=== PATIENT | male | born 1975 | race Caucasian/White ===

== ENCOUNTER 2018-09-02 16:04 | Emergency (ER) | payer SELFPAY | END 2018-09-02 16:48 | disposition left against medical advice (07) | LOC: ERS 16:04 | DX: Z53.21 Procedure and treatment not carried out due to patient leaving prior to being seen by health care provider (principal) ==

== ENCOUNTER 2019-03-25 09:08 | Emergency (ER) | payer SELFPAY ==
[2019-03-25] MEDS ORDERED: Aspirin Chewable 81 MG TAB ONE (09:39)
[2019-03-25] MEDS ORDERED: Ketorolac Tromethamine 30 MG/ML VIAL ONE (09:39)
--- NOTE | 2019-03-25 09:56 | RAD ---
XR Chest 1 View Portable HISTORY: Left-sided chest pain COMPARISON: 02/01/2015 exam FINDINGS: Heart size and mediastinum are within normal limits. The lungs are clear of infiltrates. IMPRESSION: No active intrathoracic disease.
[2019-03-25 10:06] LABS: #Eosinphils 0.1 thou/uL (0.0-0.7); #Lymphocytes 1.6 thou/uL (1.20-3.40); #Monocytes 0.5 thou/uL (0.11-0.59); #Neutrophils 7.6 thou/uL (1.40-6.50); %Eosinophils 0.8 % (0.0-10.0); %Lymphocytes 16.6 % (21.0-51.0); %Monocytes 4.7 % (0.0-10.0); %Neutrophils 77.8 % (42.0-75.0); Mean Corpuscular HGB CONC 32.9 g/dL (32.0-36.0); Mean Corpuscular Hemoglobin 30.8 pg (27.0-31.0); Mean Corpuscular Volume 93.4 fL (78.0-98.0); Mean Platelet Volume 7.3 fL (7.4-10.4); Platelet Count 294 thou/uL (130-400); RBC Distribution Width 13.7 % (11.5-14.5); Red Blood Cell (RBC) Count 5.21 mill/uL (4.70-6.10); White Blood Cell (WBC) Count 9.7 thou/uL (4.8-10.8)
[2019-03-25 10:23] LABS: ALT (SGPT) 24 U/L (8-55); AST (SGOT) 23 U/L (5-34); Albumin 4.2 g/dL (3.5-5.0); Alkaline Phosphatase 61 U/L (40-110); Anion Gap 15 mmol/L (10-20); BUN (Urea Nitrogen) 11 mg/dL (8.9-20.6); Bilirubin, Total 0.3 mg/dL (0.2-1.2); Calc. Creatinine Clearance 0 mL/min (70-130); Calcium 8.9 mg/dL (7.8-10.44); Carbon Dioxide 24 mmol/L (22-29); Chloride 104 mmol/L (98-107); Estimated GFR-MDRD Greater than 90; Globulin 3.1 g/dL (2.4-3.5); Glucose 110 mg/dL (70-105); Lipase 25 U/L (8-78); Potassium 4.1 mmol/L (3.5-5.1); Protein, Total 7.3 g/dL (6.0-8.3); Sodium 139 mmol/L (136-145)
[2019-03-25] MEDS ORDERED: Acetaminophen/Codeine 30-300mg Tablet ONE (11:45)
== END 2019-03-25 12:03 | disposition home or self-care (01) ==
LOC: ERS 09:08
DX: R07.89 Other chest pain (principal); R05 Cough; I10 Essential (primary) hypertension; F41.9 Anxiety disorder, unspecified; F17.210 Nicotine dependence, cigarettes, uncomplicated
CPT/HCPCS: 71045; 80053; 83690; 84484; 85025; 85379; 93005; 96361; 96374; J1885